=== PATIENT | female | born 1995 ===

== ENCOUNTER 2020-09-02 18:36 | Outpatient (REF) | payer BC, SELFPAY ==
[2020-09-03 14:55] LABS: COVID-19 RT-PCR UVMMC Result Negative (Negative)
== END 2020-09-02 18:37 | disposition home or self-care (01) ==
LOC: LBN 18:36
PROVIDERS: Visit Provider Nurse Practitioner Family
DX: Z20.822 Contact with and (suspected) exposure to COVID-19 (principal); J06.9 Acute upper respiratory infection, unspecified
CPT/HCPCS: U0003